=== PATIENT | male | born 1970 | race Caucasian/White ===

== ENCOUNTER 2019-01-23 10:56 | Emergency (ER) | payer MEDICAID ==
[~2019-01-23] VITALS: Ht 170.2 cm; Wt 120.5 kg
[2019-01-23] MEDS ORDERED: LIDOCAINE 5% TRANSDERMAL PATCH TD ONE (14:15)
[2019-01-23 14:22] VITALS: BP 144/87
== END 2019-01-23 14:31 | disposition home or self-care (01) ==
LOC: EMS 10:57 → EDBD 10:57 → EMS 14:31
DX: M25.562 Pain in left knee (principal); R03.0 Elevated blood-pressure reading, without diagnosis of hypertension
CPT/HCPCS: 29505